=== PATIENT | female | born 1970 | race Two or more races ===

== ENCOUNTER → 2017-12-25 | Outpatient (CLI) | payer OTHER ==
--- NOTE | 2017-12-25 12:59 | RAD ---
Right shoulder, 3 views, 12/25/2017: HISTORY: Shoulder pain No fracture or dislocation is identified. There is mild degenerative change at the AC joint. There is mild spurring along the inferior glenoid rim. The periarticular soft tissues are unremarkable. IMPRESSION: 1. Mild degenerative change. 2. No acute bony abnormality is detected. Electronically signed by: Matthew Street MD (12/25/2017 12:56 PM) [facility]
== END | disposition home or self-care (01) ==
LOC: RAD 12:15
PROVIDERS: ATTEND Orthopaedic Surgery Sports Medicine
DX: M19.011 Primary osteoarthritis, right shoulder (principal); M75.81 Other shoulder lesions, right shoulder
CPT/HCPCS: 73030